=== PATIENT | male | born 1965 ===

== ENCOUNTER 2017-12-02 14:22 | Emergency (ER) | payer BC ==
--- NOTE | 2017-12-02 14:37 | UC ---
Back Pain HPI - HPI Summary HPI Summary: 52 yo male presents with right flank pain s/p fall earlier today. He tells me that he was going down his wooden steps at home, but missed a step and landed on his right mid/lower back. Did not hit his head or have LOC. He is ambulatory without assistance, but does have a limp and shuffling gait due to pain. He has not taken anything for the pain. Denies numbness, radiation of pain, SOB, cough , abdominal pain, n/v, hematuria, saddle anesthesia, or loss of bowel/bladder function. - History of Current Complaint Stated Complaint: BACK PAIN Time Seen by Provider: 12/02/17 14:37 Hx Obtained From: Patient Onset/Duration: Sudden Onset Timing: Constant Severity Initially: Severe Severity Currently: Severe Pain Intensity: 8 Pain Scale Used: 0-10 Numeric - Allergies/Home Medications Allergies/Adverse Reactions: Allergies Allergy/AdvReac Type Severity Reaction Status Date / Time No Known Allergies Allergy Verified 12/02/17 14:46 PMH/Surg Hx/FS Hx/Imm Hx Cardiovascular History: Hypertension - Surgical History Surgical History: Yes Surgery Procedure, Year, and Place: Right shoulder repair 25 years ago - Family History Known Family History: Positive: Hypertension - Social History Occupation: Employed Full-time Lives: With Family Alcohol Use: Occasionally Substance Use Type: None Smoking Status (MU): Never Smoked Tobacco Review of Systems Constitutional: Negative Skin: Other - Abrasion right flank Respiratory: Negative Cardiovascular: Negative Gastrointestinal: Negative Genitourinary: Negative Neurovascular: Negative Musculoskeletal: Other: - Right flank pain Neurological: Negative Psychological: Negative All Other Systems Reviewed And Are Negative: Yes Physical Exam - Summary Physical Exam Summary: GENERAL: Moderate pain distress. SKIN: Superficial abrasion to right flank. NECK: Supple. FROM. Nontender. CHEST: CTAB. No r/r/w. No accessory muscle use. Breathing comfortably and in no distress. CV: RRR. Without m/r/g. Pulses intact. Brisk cap refill. ABDOMEN: Soft. NTTP. No distention or guarding. No CVA tenderness. Bowel sounds present MSK: TTP over right flank at area of abrasion. Pain with flexion and extension of spine. Strength 5/5 B/L LEs including dorsiflexion and plantar flexion. FROM B/L LEs. No edema. NEURO: Alert. CN II-XII grossly intact. Sensations intact B/L LEs L3-S1. PSYCH: Age appropriate behavior. Triage Information Reviewed: Yes Vital Signs: Vital Signs: Temp Pulse Resp BP Pulse Ox 98.9 F 69 18 135/80 98 12/02/17 14:42 12/02/17 14:42 12/02/17 14:42 12/02/17 14:42 12/02/17 14:42 Laboratory Tests 12/02/17 15:37 POC Urine Color Yellow POC Urine Clarity Clear POC Urine pH 5.0 POC Ur Specif [place] 1.025 POC Urine Protein Negative POC Ur Glucose (UA) Negative POC Urine Ketones Negative POC Urine Blood 1+ A POC Urine Nitrite Negative POC Urine Bilirubin Negative POC Urine Urobilinogen 0.2 POC U Leukocyte Esteras Negative Vital Signs Reviewed: Yes Back Pain Course/Dx - Course Course Of Treatment: XR of T and L spine: IMPRESSION: LIMITED VISUALIZATION OF THE UPPER DORSAL SPINE ON THE LATERAL VIEW, NO. EVIDENCE FOR FRACTURE. IMPRESSION: NO EVIDENCE FOR FRACTURE. UA with 1+ blood. Suspect soft tissue/ back contusion with possible renal contusion. He was given norco 5/325mg in the clinical course and experienced moderate relief of pain and was much more comfortable. Will rx for short course of norco and lidoderm patch. Have him f/u within 5 days with his PCP for recheck. Advised to go to the ED if he develops gross hematuria or new symptoms. Pt agreeable to this plan. Reference #: [id number] - Differential Dx/Diagnosis Provider Diagnoses: Fall. Right renal contusion. Right sided back pain Discharge - Sign-Out/Discharge Documenting (check all that apply): Patient Departure - Discharge Plan Condition: Stable Disposition: HOME Prescriptions: Hydrocodone/Acetaminophen [[place] 5-325 Tablet] 1 each PO Q8H PRN #9 tablet MDD 3 PRN Reason: Pain Lidocaine PATCH 5%* [Lidoderm 5% Patch*] 1 patch TRANSDERM DAILY PRN #1 box PRN Reason: Pain Patient Education Materials: Contusion in Adults (ED), Back Pain (ED) Referrals: Juan Pablo Middleton DO [Primary Care Provider] - Additional Instructions: If you develop a fever, shortness of breath, chest pain, new or worsening symptoms - please call your PCP or go to the ED. Your blood pressure was high at todays visit. Please see your primary provider within 4 weeks for recheck and re-evaluation. 1) Please schedule a follow up appointment with your PCP within 5 days for a recheck 2) If you notice blood in your urine - please go to the ED - Billing Disposition and Condition Condition: STABLE Disposition: Home
[2017-12-02 14:46] VITALS: BP 135/80
[2017-12-02] MEDS ORDERED: HYDROcodone/ACETAMIN 5-325 MG* 1 TAB PO ONE (14:57)
--- NOTE | 2017-12-02 15:25 | RAD ---
INDICATION: Trauma right flank pain. COMPARISON: There are no prior studies available for comparison. TECHNIQUE: 5 views of the lumbar spine were obtained including lateral, oblique, AP and a coned-down lateral view of the lumbar sacral junction. FINDINGS: There is a mild lumbar scoliosis convex toward the left side. The vertebra are otherwise demonstrate normal alignment. No fracture is seen. Disc spaces appear maintained. IMPRESSION: NO EVIDENCE FOR FRACTURE.
--- NOTE | 2017-12-02 15:29 | RAD ---
INDICATION: Trauma right flank pain. COMPARISON: There are no prior studies available for comparison. TECHNIQUE: AP and lateral films of the dorsal spine were obtained. There is limited visualization of the upper dorsal spine secondary to the shoulder projecting over this region. FINDINGS: There is a mild dorsal scoliosis convex toward the right side. There are otherwise in normal alignment. No fracture is seen. There is mild degenerative disc disease in the mid and lower dorsal spine. IMPRESSION: LIMITED VISUALIZATION OF THE UPPER DORSAL SPINE ON THE LATERAL VIEW, NO EVIDENCE FOR FRACTURE.
== END 2017-12-02 16:02 | disposition home or self-care (01) ==
LOC: UCEAST 14:22
DX: S37.011A Minor contusion of right kidney, initial encounter (principal); S30.811A Abrasion of abdominal wall, initial encounter; W10.9XXA Fall (on) (from) unspecified stairs and steps, initial encounter; Y93.89 Activity, other specified; Y92.009 Unspecified place in unspecified non-institutional (private) residence as the place of occurrence of the external cause; M54.5 Low back pain
CPT/HCPCS: 72070; 72110; 81003; 99202; G0463